=== PATIENT | male | born 1965 | race Caucasian/White ===

== ENCOUNTER 2017-02-11 11:07 | Emergency (ER) | payer OTHER ==
[~2017-02-11] VITALS: Ht 188 cm; Wt 84.8 kg
[2017-02-11 12:41] VITALS: BP 160/100
== END 2017-02-11 12:45 | disposition home or self-care (01) ==
LOC: ED 12:37
DX: S93.401A Sprain of unspecified ligament of right ankle, initial encounter (principal); W01.198A Fall on same level from slipping, tripping and stumbling with subsequent striking against other object, initial encounter; Y93.89 Activity, other specified; Y99.8 Other external cause status; Y92.009 Unspecified place in unspecified non-institutional (private) residence as the place of occurrence of the external cause
CPT/HCPCS: 99284

== ENCOUNTER 2017-05-20 16:55 | Inpatient (IN) | payer OTHER ==
[~2017-05-20] VITALS: Ht 188 cm; Wt 85.4 kg
[2017-05-20] MEDS ORDERED: SODIUM CHLORIDE FLUSH 10ML SYR IVF ONE (17:30)
[2017-05-20] MEDS ORDERED: DIAZEPAM 5 MG TABLET PO ONE (18:00)
[2017-05-20] MEDS ORDERED: MECLIZINE CHEWABLE 25 MG TAB PO ONE (18:00)
[2017-05-20] MEDS ORDERED: SODIUM CHLORIDE 0.9% 1,000ML IVBOLUS ONE ×2 (18:00→20:30)
[2017-05-20 18:03] LABS: BLOOD UREA NITROGEN 17 mg/dL (7-18)
[2017-05-20 18:08] LABS: ASPARTATE AMINO TRANSFERASE 18 U/L (15-37)
[2017-05-20 18:10] LABS: IS PT STATUS REG ER OR PRE ER? YES
[2017-05-20] MEDS ORDERED: DIAZEPAM 5 MG TABLET ONE (18:11)
[2017-05-20] MEDS ORDERED: MECLIZINE CHEWABLE 25 MG TAB ONE (18:11)
[2017-05-20 18:40] LABS: DIFF TOTAL CELLS COUNTED 100 CELL DIFF
[2017-05-20 18:44] LABS: VERIFY COUNTS? YES
[2017-05-20] MEDS ORDERED: ACETAMINOPHEN 500 MG TABLET ONE (20:10)
[2017-05-20 20:21] LABS: PATH.CAST-FLAG NOT PRESENT; SPERM-FLAG NOT PRESENT; SRC-FLAG NOT PRESENT; XTAL-FLAG NOT PRESENT; YLC-FLAG NOT PRESENT
[2017-05-20] MEDS ORDERED: CEFTRIAXONE PMX 1GM/50ML 50 ML IVPB ONE (20:30)
[2017-05-20] MEDS ORDERED: ACETAMINOPHEN 500 MG TABLET PO ONE (20:30)
[2017-05-20] MEDS ORDERED: CEFTRIAXONE PMX 1GM/50ML 50 ML ONE (21:03)
[2017-05-20] MEDS ORDERED: CEFTRIAXONE PMX 1GM/50ML 50 ML IV SCH (21:30)
[2017-05-20] MEDS ORDERED: NICOTINE 21 MG/24 HR PATCH.TD24 TD SCH (22:00)
[2017-05-20] MEDS ORDERED: ONDANSETRON 2MG/ML, 2ML IVPush PRN (22:00)
[2017-05-20] MEDS ORDERED: BISACODYL 10 MG SUPP PR PRN (22:00)
[2017-05-20] MEDS ORDERED: ACETAMINOPHEN 325 MG TABLET PO PRN (22:00)
[2017-05-20] MEDS ORDERED: POLYETHYLENE GLYCOL 17 GM PACKET PO PRN (22:00)
[2017-05-20 23:43] VITALS: BP 131/89
[2017-05-21] MEDS: SODIUM CHLORIDE 0.9% 1,000 ML IV SCH ×2 (00:32→08:06)
[2017-05-21] MEDS: HEPARIN 5,000 UNITS/ML, 1ML SQ SCH ×2 (00:32→08:34)
[2017-05-21 02:17] VITALS: BP 146/94
[2017-05-21] MEDS ORDERED: CALCIUM CARBONATE 500 MG TAB.CHEW PO PRN (02:30)
[2017-05-21 06:11] LABS: BLOOD UREA NITROGEN 17 mg/dL (7-18)
[2017-05-21 06:17] LABS: ASPARTATE AMINO TRANSFERASE 13 U/L (15-37)
[2017-05-21 08:00] VITALS: BP 153/95
[2017-05-21] MEDS ORDERED: SENNA/DOCUSATE TABLET PO SCH (09:00)
[2017-05-21 14:20] VITALS: BP 123/82
[2017-05-21] MEDS ORDERED: BISACODYL 10 MG SUPP PR PRN (16:30)
[2017-05-21] MEDS ORDERED: POLYETHYLENE GLYCOL 17 GM PACKET PO PRN (16:30)
[2017-05-21] MEDS ORDERED: ACETAMINOPHEN 325 MG TABLET PO PRN (16:30)
[2017-05-21] MEDS ORDERED: ONDANSETRON 2MG/ML, 2ML IVPush PRN (16:30)
[2017-05-21] MEDS ORDERED: CEFD300C37 PO (17:33)
[2017-05-21] MEDS ORDERED: CEFTRIAXONE PMX 1GM/50ML 50 ML IV SCH (21:00)
== END 2017-05-21 16:57 | disposition left against medical advice (07) | DRG 872 ==
LOC: ED 21:07 → EDIP 21:15 → 4EST 23:34
PROVIDERS: ADMIT Internal Medicine; ATTEND Internal Medicine
DX: A41.9 Sepsis, unspecified organism (principal); E87.1 Hypo-osmolality and hyponatremia; E44.1 Mild protein-calorie malnutrition; N39.0 Urinary tract infection, site not specified; F17.210 Nicotine dependence, cigarettes, uncomplicated
CPT/HCPCS: 36415; 70450; 71010; 80053; 81001; 83605; 84484; 85025; 87040; 87077; 87086; 87186; 93005; 96360; 96361; J0696; J1644; J7030

== ENCOUNTER 2017-10-30 12:09 | Emergency (ER) | payer OTHER ==
[~2017-10-30] VITALS: Ht 188 cm; Wt 94.7 kg
[~2017-10-30 12:09] MED LIST: CEFD300C37 PO
[2017-10-30 12:19] VITALS: BP 142/98
[2017-10-30] MEDS ORDERED: LIDOCAINE 1%, 10ML ONE (12:59)
[2017-10-30] MEDS ORDERED: LIDOCAINE 1%, 20ML SQ ONE (13:30)
== END 2017-10-30 14:11 | disposition home or self-care (01) ==
LOC: ED 13:00
DX: S61.210A Laceration without foreign body of right index finger without damage to nail, initial encounter (principal); X58.XXXA Exposure to other specified factors, initial encounter; Y93.89 Activity, other specified; Y92.89 Other specified places as the place of occurrence of the external cause; Y99.8 Other external cause status
CPT/HCPCS: 12001; 99283

== ENCOUNTER 2019-05-19 19:13 | Inpatient (IN) | payer MEDICAID, OTHER ==
[~2019-05-19] VITALS: Ht 188 cm; Wt 89.9 kg
[2019-05-19] MEDS ORDERED: PANTOPRAZOLE 80 MG in SODIUM CHLORIDE 0.9% 100 ML IV SCH (20:19)
--- NOTE | 2019-05-19 20:28 | NUR ---
PHARMACY TO CHANGE PROTONIX ORDER, AWAITING ARRIVAL. OK W/ ERMD.
[2019-05-19] MEDS ORDERED: PANTOPRAZOLE 40 MG IV IVPush ONE (20:30)
[2019-05-19] MEDS ORDERED: ONDANSETRON 2MG/ML, 2ML ONE (20:30)
[2019-05-19] MEDS ORDERED: ESOMEPRAZOLE 40 MG IV IVPush ONE (20:30)
[2019-05-19] MEDS ORDERED: ONDANSETRON 2MG/ML, 2ML IVPush ONE (20:30)
[2019-05-19] MEDS ORDERED: SODIUM CHLORIDE 0.9% 1,000ML IVBOLUS ONE (20:30)
[2019-05-19] MEDS ORDERED: ESOMEPRAZOLE SODIUM 80 MG in SODIUM CHLORIDE 0.9% 100 ML IV SCH ×2 (20:30→22:00)
[2019-05-19] MEDS ORDERED: SODIUM CHLORIDE FLUSH 10ML SYR IVF ONE (20:30)
--- NOTE | 2019-05-19 20:33 | NUR ---
PT TO RADIOLOGY AT THIS TIME
[2019-05-19 20:38] LABS: BASOPHILS # (AUTO) 0.03 x10^3/uL (0-0.1); BASOPHILS % (AUTO) 0 % (0-1); EOSINOPHILS # (AUTO) 0.18 x10^3/uL (0-0.4); EOSINOPHILS % (AUTO) 1 % (1-7); LYMPHOCYTES # (AUTO) 1.47 x10^3/uL (1-3.4); LYMPHOCYTES % (AUTO) 9 % (22-44); MD NO; MEAN CORPUSCULAR HEMOGLOBIN 31.6 pg (27.5-34.5); MEAN CORPUSCULAR HGB CONC 33.6 g/dL (33.2-36.2); MEAN CORPUSCULAR VOLUME 94.1 fL (81-97); MEAN PLATELET VOLUME 10.1 fL (7.4-10.4); MONOCYTES # (AUTO) 0.93 x10^3/uL (0.2-0.8); MONOCYTES % (AUTO) 6 % (2-9); NEUTROPHILS # (AUTO) 12.98 x10^3/uL (1.8-6.8); NEUTROPHILS % (AUTO) 83 % (42-75); PLATELET COUNT 198 x10^3/uL (130-400); RED BLOOD COUNT 4.84 x10^6/uL (4.38-5.82)
[2019-05-19 20:50] LABS: ALANINE AMINOTRANSFERASE 26 U/L (12-78); ALBUMIN 3.9 g/dL (3.4-5.0); ANION GAP 10 mmol/L (5-15); CALCIUM 10.1 mg/dL (8.5-10.1); CHLORIDE 109 mmol/L (98-107); CREATININE 1.21 mg/dL (0.7-1.3)
[2019-05-19 20:52] LABS: ALKALINE PHOSPHATASE 78 U/L (45-117); BILIRUBIN,TOTAL 1.6 mg/dL (0.2-1.0); TOTAL PROTEIN 7.3 g/dL (6.4-8.2)
--- NOTE | 2019-05-19 20:52 | NUR ---
AWAITING NEXIUM FROM PHARMACY
[2019-05-19 20:54] LABS: INTERNATIONAL NORMALIZED RATIO 0.99 (0.93-1.1); PROTHROMBIN TIME 10.4 Seconds (9.6-11.5)
--- NOTE | 2019-05-19 21:46 | NUR ---
GAVE REPORT TO ABDULLAHI PIZARRO AND AWAITING TRANSPORT. Addendum: 05/19/19 at 2153 by LIEN NEW BED STATUS ASSIGNED BY HOSPITALIST, AWAITING NEW REPORT NUMBER/RN
--- NOTE | 2019-05-19 21:59 | NUR ---
GAVE REPORT TO ABDULLAHI PIERRE AND AWAITING TRANPSORT.
[2019-05-19] MEDS ORDERED: morphine SULFATE 10 MG/ML, 1ML IVPush PRN (22:00)
[2019-05-19] MEDS ORDERED: OCTREOTIDE 500 MCG in SODIUM CHLORIDE 0.9% 249 ML IV SCH (22:00)
[2019-05-19] MEDS ORDERED: ONDANSETRON 2MG/ML, 2ML IVPush PRN (22:00)
[2019-05-19 22:41] VITALS: BP 130/87
[2019-05-19] MEDS: NICOTINE 14MG/24 HR PATCH.TD24 TD SCH (23:43)
[2019-05-20 00:47] VITALS: BP 132/80
[2019-05-20 05:54] LABS: BASOPHILS # (AUTO) 0.02 x10^3/uL (0-0.1); BASOPHILS % (AUTO) 0 % (0-1); EOSINOPHILS # (AUTO) 0.33 x10^3/uL (0-0.4); EOSINOPHILS % (AUTO) 2 % (1-7); LYMPHOCYTES % (AUTO) 16 % (22-44); MD NO; MEAN CORPUSCULAR VOLUME 93.8 fL (81-97); MEAN PLATELET VOLUME 9.9 fL (7.4-10.4); MONOCYTES # (AUTO) 1.42 x10^3/uL (0.2-0.8); MONOCYTES % (AUTO) 10 % (2-9); NEUTROPHILS # (AUTO) 9.87 x10^3/uL (1.8-6.8); NEUTROPHILS % (AUTO) 71 % (42-75); PLATELET COUNT 165 x10^3/uL (130-400); RED BLOOD COUNT 4.64 x10^6/uL (4.38-5.82); RED CELL DISTRIBUTION WIDTH 14.4 % (9.4-14.8)
[2019-05-20 06:05] LABS: ANION GAP 6 mmol/L (5-15); CALCIUM 9.2 mg/dL (8.5-10.1); CHLORIDE 110 mmol/L (98-107); CREATININE 0.97 mg/dL (0.7-1.3)
[2019-05-20 07:30] VITALS: BP 135/87
[2019-05-20] MEDS: SUCRALFATE 1 GM/10 ML UDC PO SCH ×3 (13:24→20:45)
[2019-05-20 13:25] VITALS: BP 128/79
[2019-05-20 16:35] LABS: AMPHETAMINE SCREEN, URINE Positive (Negative); BARBITURATE SCREEN, URINE Negative (Negative); BENZODIAZEPINE SCREEN, URINE Negative (Negative); CANNABINOID SCREEN, URINE Negative (Negative); COCAINE SCREEN, URINE Negative (Negative); METHADONE SCREEN, URINE Negative (Negative); OPIATE SCREEN, URINE Negative (Negative)
[2019-05-20] MEDS: PANTOPRAZOLE 20MG TABLET PO SCH (16:38)
[2019-05-20 19:05] VITALS: BP 130/82
[2019-05-20] MEDS: NICOTINE 14MG/24 HR PATCH.TD24 TD SCH (23:24)
[2019-05-21 01:19] VITALS: BP 120/77
[2019-05-21] MEDS: PANTOPRAZOLE 20MG TABLET PO SCH (05:34)
[2019-05-21 07:24] VITALS: BP 127/81
[2019-05-21 07:55] LABS: BASOPHILS # (AUTO) 0.03 x10^3/uL (0-0.1); BASOPHILS % (AUTO) 0 % (0-1); EOSINOPHILS % (AUTO) 6 % (1-7); LYMPHOCYTES # (AUTO) 1.79 x10^3/uL (1-3.4); LYMPHOCYTES % (AUTO) 26 % (22-44); MD NO; MEAN PLATELET VOLUME 9.2 fL (7.4-10.4); MONOCYTES # (AUTO) 0.62 x10^3/uL (0.2-0.8); MONOCYTES % (AUTO) 9 % (2-9); NEUTROPHILS # (AUTO) 3.96 x10^3/uL (1.8-6.8); NEUTROPHILS % (AUTO) 58 % (42-75); PLATELET COUNT 150 x10^3/uL (130-400); RED BLOOD COUNT 4.56 x10^6/uL (4.38-5.82); RED CELL DISTRIBUTION WIDTH 14.2 % (9.4-14.8)
[2019-05-21] MEDS: SUCRALFATE 1 GM/10 ML UDC PO SCH ×2 (08:04→11:34)
[2019-05-21 08:07] LABS: ALANINE AMINOTRANSFERASE 19 U/L (12-78); ALBUMIN 2.9 g/dL (3.4-5.0); ANION GAP 5 mmol/L (5-15); CALCIUM 8.3 mg/dL (8.5-10.1); CHLORIDE 110 mmol/L (98-107)
[2019-05-21 08:10] LABS: ALKALINE PHOSPHATASE 65 U/L (45-117); BILIRUBIN,TOTAL 1.2 mg/dL (0.2-1.0); CREATININE 0.86 mg/dL (0.7-1.3)
[2019-05-21] MEDS ORDERED: PANT20TA3 PO (08:45)
[2019-05-21] MEDS ORDERED: SUCR1ORA5 PO (08:45)
[2019-05-21 12:42] VITALS: BP 125/81
== END 2019-05-21 14:37 | disposition home or self-care (01) | DRG 379 ==
LOC: ED 21:22 → EDIP 21:51 → 4WST 22:27 → DCLOUNGE 05-21 14:30
PROVIDERS: ADMIT Internal Medicine; ATTEND Internal Medicine
DX: K29.01 Acute gastritis with bleeding (principal); F10.10 Alcohol abuse, uncomplicated; Y90.9 Presence of alcohol in blood, level not specified; F17.200 Nicotine dependence, unspecified, uncomplicated; R13.10 Dysphagia, unspecified; Z87.19 Personal history of other diseases of the digestive system
CPT/HCPCS: 36415; 74021; 80048; 80053; 80307; 83690; 85025; 85610; 85730; 86850; 86900; 93005; 96374; 96375; G0378; J2354; J2405; J2270; J7030; J7050

== ENCOUNTER 2020-09-15 19:45 | Emergency (ER) | payer MEDICAID ==
[~2020-09-15] VITALS: Ht 188 cm; Wt 100.8 kg
[~2020-09-15 19:45] MED LIST changes: +PANT20TA4 PO; +SUCR1ORA5 PO
--- NOTE | 2020-09-15 21:04 | NUR ---
pt to room from lobby
--- NOTE | 2020-09-15 21:05 | NUR ---
PT ASSIGNED TO ROOM 18, NOT IN ROOM, US CALLED, NOT IN US. PT DID NOT ANSWER FROM LOBBY AT THIS TIME.
--- NOTE | 2020-09-15 21:23 | NUR ---
ASSUMED CARE OF PT AT THIS TIME FROM LOBBY. AMBULATORY TO ROOM WITH STEADY GAIT. FIRST CONTACT WITH PT. 55 Y/O M PRESENTS "PAIN IN RIGHT TESTICLE FOR LAST WEEK, RED, SWOLLEN, HURTS TO TOUCH." DENIES URINARY DIFFICULTY, PAIN OR SYMPTOMS AND ANY DISCHARGE FROM [facility]RETHRA. RATES PAIN 3/10. CONT PULSE OX, BP MONITORS APPLIED. BP SLIGHTLY ELEVATED, HX HTN. PT REPORTS HE DOES NOT TAKE ANY MEDICATIONS AT THIS TIME. DR. LEZAMA AT BEDSIDE FOR EVALUATION AND ASSESSMENT OF TESTICLE. +REDNESS, SWELLING. CALL LIGHT IN REACH. FALL PRECAUTIONS IN PLACE. A&XO4.
--- NOTE | 2020-09-15 21:31 | NUR ---
PT AMBULATORY TO RESTROOM WITH STEADY GAIT FOR UA SAMPLE PER DR. TEJA PETERSON
--- NOTE | 2020-09-15 21:36 | NUR ---
CLEAN CATCH UA COLLECTED AND SENT TO LAB. PT RESTING COMFORTABLY. VSS. CALL LIGHT IN REACH. FALL PRECAUTIONS IN PLACE. REFUSES NEED FOR PAIN MEDICATIONS
[2020-09-15] MEDS ORDERED: CEFTRIAXONE 250 MG ONE ×2 (21:40→21:44)
[2020-09-15] MEDS ORDERED: LIDOCAINE-MPF 1%, 2ML ONE (21:40)
[2020-09-15] MEDS ORDERED: LIDOCAINE-MPF 1%, 5ML ONE (21:44)
[2020-09-15 21:47] LABS: MICROSCOPIC NOT IND
[2020-09-15] MEDS ORDERED: CEFTRIAXONE 250 MG IM ONE (22:00)
--- NOTE | 2020-09-15 22:05 | NUR ---
PT UP FOR RECHECK
--- NOTE | 2020-09-15 22:29 | NUR ---
PT AWAITING RECHECK. Addendum: 09/15/20 at 2231 by YAMILE PT AWAITING RECECK, RESTING COMFORTABLY. DENIES NEED TO USE RESTROOM. VSS. BP IMPROVED FROM ARRIVAL. RATES PAIN 2-12/24 REFUSES NEED FOR PAIN MEDICATION. CALL LIGHT IN REACH. FALL PRECAUTIONS IN PLACE.
--- NOTE | 2020-09-15 22:50 | NUR ---
PT UP FOR DISCHARGE, AWAITING CHART AND DC PAPERS FROM ERP
[2020-09-15 23:01] VITALS: BP 132/86
== END 2020-09-15 23:04 | disposition home or self-care (01) ==
LOC: ED 21:44
DX: N45.3 Epididymo-orchitis (principal); F17.210 Nicotine dependence, cigarettes, uncomplicated
CPT/HCPCS: 76870; 81003; 87491; 87591; 96372; 99284; 99406; J0696

== ENCOUNTER 2021-03-12 15:09 | Emergency (ER) | payer MEDICAID ==
[~2021-03-12] VITALS: Ht 188 cm; Wt 100.8 kg
[2021-03-12 15:15] VITALS: BP 153/108
--- NOTE | 2021-03-12 15:21 | NUR ---
PT BROUGHT BACK TO ROOM VIA WC.
[2021-03-12] MEDS ORDERED: HYDROcodone/APAP 5/325 TABLET ONE (15:53)
[2021-03-12] MEDS ORDERED: HYDROcodone/APAP 5/325 TABLET PO ONE (16:00)
--- NOTE | 2021-03-12 17:12 | NUR ---
PT REC'VD DISCHARGE INSTUCTIONS AND EDUCATION. PT HAD NO FURTHER QUESTION. PT AMBUATED TO DC AREA, STEADY GAIT.
== END 2021-03-12 17:15 | disposition home or self-care (01) ==
LOC: ED 15:53
DX: S51.812A Laceration without foreign body of left forearm, initial encounter (principal); S80.02XA Contusion of left knee, initial encounter; S80.811A Abrasion, right lower leg, initial encounter; S80.212A Abrasion, left knee, initial encounter; L03.114 Cellulitis of left upper limb; R00.0 Tachycardia, unspecified; Z72.9 Problem related to lifestyle, unspecified; F17.210 Nicotine dependence, cigarettes, uncomplicated; V89.2XXA Person injured in unspecified motor-vehicle accident, traffic, initial encounter; Y93.89 Activity, other specified; Y92.89 Other specified places as the place of occurrence of the external cause; Y99.8 Other external cause status
CPT/HCPCS: 29530; 99283